=== PATIENT | female | born 1955 | race Asian ===

== ENCOUNTER 2018-09-11 20:51 | Emergency (ER) | payer MEDICARE, OTHER ==
[~2018-09-11] VITALS: Ht 152.4 cm; Wt 63.5 kg
--- NOTE | 2018-09-11 21:05 | Emergency Room Report ---
History of Present Illness General Chief Complaint: Multiple Trauma/Fall Source: Patient Present Illness HPI This is a 63-year-old female who has a history of renal failure on hemodialysis. She presents with chief complaint of left hip pain. She was walking near the [place] and tripped and fell. She landed on her left hip. Also hit her head. Complaining of mostly left hip pain. Also with ankle pain and head pain. No loss of consciousness. Pain is 7 out of 10. Worse with movement. Unable to bear weight. No nausea no vomiting. Denies any other complaint. Allergies: Coded Allergies: No Known Allergies (Unverified , 09/11/18) Patient History Past Medical History: see triage record, old chart reviewed, HTN, dialysis Past Surgical History: other Pertinent Family History: none Social History: Denies: smoking Last Menstrual Period: 15 years ago Now: No Immunizations: other Reviewed Nursing Documentation: PMH: Agreed; PSxH: Agreed Nursing Documentation-PMH Hx Dialysis: Yes Review of Systems Eye: Denies: eye pain, blurred vision ENT: Denies: ear pain, nose congestion, throat swelling Respiratory: Denies: cough, shortness of breath Cardiovascular: Denies: chest pain, palpitations Gastrointestinal: Denies: abdominal pain, diarrhea, nausea, vomiting Musculoskeletal: Reports: joint pain Skin: Denies: rash Neurological: Denies: headache, numbness Endocrine: Denies: increased thirst, increased urine Hematologic/Lymphatic: Denies: easy bruising All Other Systems: negative except mentioned in HPI Physical Exam Vital Signs Date Time Temp Pulse Resp B/P (MAP) Pulse Ox O2 Delivery O2 Flow Rate FiO2 09/11/18 20:49 98.6 99 16 190/80 96 Room Air vitals with high blood pressure Sp02 EP Interpretation: reviewed, normal General Appearance: well appearing, no apparent distress, alert Head: normocephalic, other - Left parietal tenderness Eyes: bilateral eye PERRL, bilateral eye EOMI ENT: hearing grossly normal, normal pharynx Neck: full range of motion, supple, no meningismus Respiratory: chest non-tender, lungs clear, normal breath sounds Cardiovascular #1: regular rate, rhythm, no murmur Gastrointestinal: normal bowel sounds, non tender, no mass, no organomegaly, no bruit, non-distended Musculoskeletal: back normal, normal range of motion, other - Left hip tenderness. Worse with movement. Left ankle tenderness. No deformity. Neurologic: alert, oriented x3 Psychiatric: mood/affect normal Skin: warm/dry Medical Decision Making Diagnostic Impression: Primary Impression: Femoral neck fracture Qualified Codes: S72.002A - Fracture of unspecified part of neck of left femur , initial encounter for closed fracture Additional Impressions: Head injury, acute Qualified Codes: S09.90XA - Unspecified injury of head, initial encounter Ankle sprain Qualified Codes: S93.402A - Sprain of unspecified ligament of left ankle, initial encounter ER Course Patient with a left hip fracture from a fall. She will need a hip replacement. Patient wants to be transferred to [facility] where her doctor is. I spoke with Dr. Bimal Lucero who excepted the patient for transfer. Patient is stable for transfer Lab Results Impression labs unremarkable EKG Diagnostic Results Rate: normal Rhythm: NSR ST Segments: other - Nonspecific ST change Rhythm Strip Diag. Results Rhythm Strip Time: 22:58 Rate: 100 Rhythm: NSR, no PVC's, no ectopy Chest X-Ray Diagnostic Results Chest X-Ray Diagnostic Results : Chest X-Ray Ordered: Yes # of Views/Limited/Complete: 1 View Indication: Chest Pain EP Interpretation: Yes Interpretation: no consolidation, no effusion, no pneumothorax, no acute cardiopulmonary disease Impression: No acute disease Electronically Signed by: Juan Mera MD Other X-Ray Diagnostic Results Other X-Ray Diagnostic Results #1: X-Ray ordered: Left hip xrays # of Views/Limited Vs Complete: 3 View Indication: Pain EP Interpretation: Yes Interpretation: no dislocation, no soft tissue swelling, other - femoral neck frx Impression: Other - hip frx Electronically Signed by: Juan Mera MD Other X-Ray Diagnostic Results #2: X-Ray ordered: left ankle xrays # of Views/Limited Vs Complete: 3 View Indication: Pain EP Interpretation: Yes Interpretation: no dislocation, no soft tissue swelling, no fractures Impression: No acute disease Electronically Signed by: Juan Mera MD CT/MRI/US Diagnostic Results CT/MRI/US Diagnostic Results : Imaging Test Ordered: CT head Impression neg per radiologist. Last Vital Signs Date Time Temp Pulse Resp B/P (MAP) Pulse Ox O2 Delivery O2 Flow Rate FiO2 09/11/18 20:49 98.6 99 16 190/80 96 Room Air Status: improved Disposition: XFER SHT-TRM HOSP Condition: Stable Juan Mera MD Sep 11, 2018 21:05
[2018-09-11] MEDS ORDERED: Tylenol #3 tab (300mg/30mg) ORAL ONE (21:15)
[2018-09-11] MEDS ORDERED: Morphine Sulfate 4mg/ml Inj (IV/IM USE ONLY) IVP ONE ×2 (21:45→23:00)
[2018-09-11 22:47] LABS: BASOPHILS % (AUTO) 0.8 % (0.0-2.0); EOSINOPHILS % (AUTO) 3.8 % (0.0-3.0); HEMATOCRIT 41.3 % (37.0-47.0); HEMOGLOBIN 13.3 G/DL (12.0-16.0); LYMPHOCYTES % (AUTO) 32.2 % (20.0-45.0); MEAN CORPUSCULAR VOLUME 98 FL (80-99); MONOCYTES % (AUTO) 6.6 % (1.0-10.0); NEUTROPHILS % (AUTO) 56.6 % (45.0-75.0); PLATELET COUNT 156 K/UL (150-450); RED CELL DISTRIBUTION WIDTH 15.5 % (11.6-14.8); WHITE BLOOD COUNT 5.3 K/UL (4.8-10.8)
[2018-09-11 22:54] LABS: ANION GAP 8 mmol/L (5-15); BLOOD UREA NITROGEN 59 mg/dL (7-18); CALCIUM 8.9 MG/DL (8.5-10.1); CARBON DIOXIDE 31 MMOL/L (21-32); CHLORIDE 101 MMOL/L (98-107); CREATININE 7.9 MG/DL (0.55-1.30); INR 0.9 (0.9-1.1); SODIUM 140 MMOL/L (136-145)
[2018-09-11 22:58] LABS: ALANINE AMINOTRANSFERASE 14 U/L (12-78); ALBUMIN 3.6 G/DL (3.4-5.0); ALBUMIN/GLOBULIN RATIO 0.6 (1.0-2.7); ALKALINE PHOSPHATASE 118 U/L (46-116); ASPARTATE AMINO TRANSFERASE 13 U/L (15-37); BILIRUBIN,TOTAL 0.3 MG/DL (0.2-1.0)
[2018-09-11 23:00] VITALS: BP 162/67
[2018-09-11] MEDS ORDERED: VASCEPA1 GM PO (23:46)
[2018-09-11] MEDS ORDERED: DEXILANT60 MG ORAL (23:46)
[2018-09-11] MEDS ORDERED: CREON DR 24,001 EACH PO (23:46)
[2018-09-11] MEDS ORDERED: RENVELA0.8 GM ORAL (23:46)
[2018-09-11] MEDS ORDERED: AURYXIA210 MG PO (23:46)
[2018-09-11] MEDS ORDERED: PLAVIX75 MG ORAL (23:46)
[2018-09-11] MEDS ORDERED: ASPIR 8181 MG ORAL (23:46)
[2018-09-12] VITALS: BP 183/94
[2018-09-12] MEDS ORDERED: Morphine Sulfate 4mg/ml Inj (IV/IM USE ONLY) IVP ONE (00:45)
[2018-09-12 01:45] VITALS: BP 137/61
--- NOTE | 2018-09-12 09:38 | Diagnostic Imaging Report ---
Indication: Trauma and headache Technique: Contiguous 5 mm thick transaxial imaging of the head obtained in a Siemens Sensation [address] scanner. Soft tissue and bone windows generated. Automatic Exposure Control was utilized. Total Dose length Product (DLP): 1428.[address] Dose Index Volume (CTDIvol): 70.38 mGy Comparison: none Findings: There is mild prominence of the ventricles, basal cisterns, and cerebral sulci consistent with atrophy. Mild, nonspecific, white matter hypoattenuation is noted throughout the brain consistent with chronic small vessel disease. There is no midline shift, edema, acute hemorrhage, mass effect, or abnormal extra-axial fluid collections. Bones and extra osseous soft tissues are unremarkable. Impression: No acute intracranial bleed, mass effect or edema. Mild atrophy of the brain. Nonspecific white matter hypoattenuation probably due to chronic small vessel disease. [facility] has communicated the preliminary results to the Emergency Department. Their findings are largely concordant with this report. The CT scanner at [facility] is accredited by the [employer] and the scans are performed using dose optimization techniques as appropriate to a performed exam including Automatic Exposure control.
--- NOTE | 2018-09-12 10:47 | Diagnostic Imaging Report ---
Indication: Dyspnea Comparison: None A single view chest radiograph was obtained. Findings: Interstitial densities and prominent vascularity and borderline cardiomegaly demonstrated. Extensive surgical clips in the left chest wall and axilla noted. Bones are osteopenic. IMPRESSION: Interstitial edema/CHF suspected
--- NOTE | 2018-09-12 10:52 | Diagnostic Imaging Report ---
Indication: left ankle pain Comparison: None Findings: 3 views of the left ankle obtained. No acute fracture, malalignment, periostitis, or osteochondral defects are identified. Soft tissues are unremarkable. Impression: No acute findings
--- NOTE | 2018-09-12 10:52 | Diagnostic Imaging Report ---
Indications: Left hip pain Findings: Two views of the left hip were obtained. There is acute intracapsular fracture of the left femoral neck with moderate displacement and angulation. Bones are osteopenic. IMPRESSION: Acute left femoral neck fracture
--- NOTE | 2018-09-12 18:30 | Consultation ---
DATE OF CONSULTATION: 09/11/2018 ORTHOPEDIC CONSULTATION CONSULTING PHYSICIAN: Vern Villagran M.D. CHIEF COMPLAINT: Right hip pain. HISTORY OF PRESENT ILLNESS: The patient is a pleasant 63-year-old female who sustained a mechanical fall. She was brought to the emergency room, diagnosed with right femoral neck fracture. Orthopedic consultation obtained for further care and recommendation. PAST MEDICAL HISTORY: Reviewed from the intake chart. SURGICAL HISTORY: Reviewed from the intake chart. MEDICATION: Reviewed from the intake chart. PHYSICAL EXAMINATION: GENERAL: The patient is alert and oriented. She is in moderate discomfort. MUSCULOSKELETAL: She has shortened and internally rotated right hip. DIAGNOSTIC DATA: CT scan of the right hip shows a displaced femoral neck fracture. ASSESSMENT: Right displaced femoral neck fracture. DISCUSSION: At this point, I recommend is consideration for right hip hemiarthroplasty. The [facility] treating [facility]. She is admitted here. We will optimize her for surgery probably Wednesday evening after dialysis in the morning. Vern Villagran M.D. DR: SHAYAN JOB#: [id number] CC:
--- NOTE | 2018-09-13 08:20 | Cardiology Report ---
APPROVED REPORT EKG Measurement Heart [id number] Sinus tachycardia Prolonged QT Abnormal ECG
== END 2018-09-12 01:05 | disposition short-term general hospital (02) ==
LOC: EDBD 20:51 → EMR 21:08
DX: S72.002A Fracture of unspecified part of neck of left femur, initial encounter for closed fracture (principal); S09.90XA Unspecified injury of head, initial encounter; S93.402A Sprain of unspecified ligament of left ankle, initial encounter; W01.198A Fall on same level from slipping, tripping and stumbling with subsequent striking against other object, initial encounter; Y92.414 Local residential or business street as the place of occurrence of the external cause; R07.9 Chest pain, unspecified; R51 Headache; I12.0 Hypertensive chronic kidney disease with stage 5 chronic kidney disease or end stage renal disease; N18.6 End stage renal disease; Z99.2 Dependence on renal dialysis
CPT/HCPCS: 36415; 70450; 71045; 73502; 73610; 80053; 84484; 85025; 85610; 85730; 93005; 96374; 96375; 96376; 99285; J0360; J2270; J2405